=== PATIENT | female | born 1955 | race Caucasian/White ===

== ENCOUNTER 2019-08-16 20:15 | Inpatient (IN) ==
[2019-08-17] MEDS ORDERED: *HR* Dextrose 50 % in Water (Syg) 50 ML SYRINGE IVP PRN (01:28)
[2019-08-17] MEDS ORDERED: Dextrose Gel 15 GM/37.5 ML TUBE PO PRN ×2 (01:28)
[2019-08-17] MEDS ORDERED: D5% in Water 1,000 ML IVC PRN (01:28)
[2019-08-17] MEDS ORDERED: Prochlorperazine 10 MG/2 ML VIAL IVP PRN (01:33)
[2019-08-17] MEDS ORDERED: Ibuprofen 400 MG TABLET PO PRN (01:35)
[2019-08-17] MEDS ORDERED: Naloxone 0.4 MG/ML INJ IVP PRN (01:35)
[2019-08-17] MEDS: *HR* OxyCODONE Immed Rel 5 MG TABLET PO PRN ×4 (02:08→20:41)
[2019-08-17] MEDS: 0.9 % Sodium Chloride 1,000 ML IVC SCH ×2 (02:11→19:15)
[2019-08-17 04:20] LABS: Hematocrit 30.9 % (35.3-44.9); Hemoglobin 9.7 g/dL (11.5-15.4); Mean Corpuscular HGB Conc 31.4 g/dL (31.6-35.5); Mean Corpuscular Hemoglobin 26.6 pg (28.0-33.3); Mean Corpuscular Volume 84.7 fL (83.0-100.0); Mean Platelet Volume 9.6 fL (9.4-12.4); Platelet Count 231 K/mcL (140-400); Red Blood Count 3.65 M/mcL (3.82-4.97); Red Cell Distribution Width 18.6 % (11.5-14.5); White Blood Count 5.9 K/mcL (4.3-11.1)
[2019-08-17 04:29] LABS: INR 1.1; Prothrombin Time 12.6 Seconds (9.4-12.1)
[2019-08-17 04:32] LABS: Activated Partial Thrombo Time 29.9 Seconds (26.0-36.0)
[2019-08-17 04:44] LABS: BUN/Creatinine Ratio 21 (6-26); Blood Urea Nitrogen 6 mg/dL (8-23); Calcium 9.3 mg/dL (8.6-10.3); Carbon Dioxide 24 mEq/L (23-29); Chloride 103 mEq/L (98-107); Chol/HDL Ratio 4.3 (0-4.9); Cholesterol 120 mg/dL (< 200); Glucose 99 mg/dL (70-105); HDL Cholesterol 28 mg/dL (40-59); LDL Cholesterol,Calculated 58 mg/dL (0-99); Magnesium 1.8 mg/dL (1.6-2.6); Osmolality,Calculated 284 (280-300); Phosphorous 3.2 mg/dL (2.7-4.5); Potassium 3.9 mEq/L (3.5-5.1); Sodium 138 mEq/L (136-145); Triglycerides 168 mg/dL (< 150); eGFR For African Americans > 60 (> 60); eGFR For Non-African Americans > 60 (> 60)
[2019-08-17 04:45] LABS: Estimated Average Glucose 128 mg/dl
[2019-08-17 05:02] LABS: Alanine Aminotransferase 52 Units/L (7-52); Albumin 3.2 g/dL (3.5-5.7); Albumin/Globulin Ratio 0.9 (1.1-2.2); Alkaline Phosphatase 459 Units/L (34-104); Aspartate Amino Transferase 70 Units/L (13-39); Bilirubin,Direct 0.1 mg/dL (0.0-0.2); Bilirubin,Indirect 0.3 mg/dL (0.0-1.0); Bilirubin,Total 0.4 mg/dL (0.3-1.0); Globulin 3.6 g/dL (2.4-3.5); Iron < 10 mcg/dL (50-170); Thyroid Stimulating Hormone 2.025 mcIU/mL (0.340-5.600); Total Protein 6.8 g/dL (6.4-8.9); Transferrin 195 mg/dL (203-362)
[2019-08-17] MEDS: Insulin LISPRO 300 UNITS/3 ML VIAL SQ SCH ×6 (05:58→16:41)
[2019-08-17] MEDS ORDERED: NON-FORMULARY MEDICATION 1 EACH EACH (Oxycodone Immed Rel 10 MG) PO PRN (13:56)
[2019-08-17] MEDS ORDERED: Lactulose Oral Soln 20 GM/30 ML UDC PO PRN (13:56)
[2019-08-17] MEDS ORDERED: Ondansetron ODT 4 MG TAB.RAPDIS PO PRN (13:56)
[2019-08-17] MEDS: hydrOXYzine pamoate 25 MG CAPSULE PO SCH ×2 (16:35→21:07)
[2019-08-17] MEDS ORDERED: *HR* Metoprolol 5 MG/5 ML VIAL IVP PRN (16:43)
[2019-08-17] MEDS ORDERED: *HR* Metformin 500 MG TABLET PO SCH (17:00)
[2019-08-17] MEDS ORDERED: Insulin LISPRO 300 UNITS/3 ML VIAL SQ SCH (21:00)
[2019-08-17] MEDS ORDERED: Latanoprost 2.5 ML BOTTLE BOTH EYES SCH (21:00)
[2019-08-18] MEDS: Insulin LISPRO 300 UNITS/3 ML VIAL SQ SCH ×5 (00:27→12:05)
[2019-08-18] MEDS: 0.9 % Sodium Chloride 1,000 ML IVC SCH (01:17)
[2019-08-18] MEDS: *HR* OxyCODONE Immed Rel 5 MG TABLET PO PRN ×3 (03:54→14:59)
[2019-08-18 04:49] LABS: Hematocrit 30.8 % (35.3-44.9); Hemoglobin 9.4 g/dL (11.5-15.4); Mean Corpuscular HGB Conc 30.5 g/dL (31.6-35.5); Mean Corpuscular Hemoglobin 26.4 pg (28.0-33.3); Mean Corpuscular Volume 86.5 fL (83.0-100.0); Platelet Count 248 K/mcL (140-400); Red Blood Count 3.56 M/mcL (3.82-4.97); Red Cell Distribution Width 18.9 % (11.5-14.5); White Blood Count 5.9 K/mcL (4.3-11.1)
[2019-08-18 05:06] LABS: BUN/Creatinine Ratio 36 (6-26); Blood Urea Nitrogen 14 mg/dL (8-23); Calcium 9.1 mg/dL (8.6-10.3); Carbon Dioxide 28 mEq/L (23-29); Chloride 103 mEq/L (98-107); Glucose 144 mg/dL (70-105); Osmolality,Calculated 291 (280-300); Potassium 3.9 mEq/L (3.5-5.1); Sodium 139 mEq/L (136-145); eGFR For African Americans > 60 (> 60); eGFR For Non-African Americans > 60 (> 60)
[2019-08-18] MEDS ORDERED: Isovue-370 500 ML BOTTLE IVP ONE (06:01)
[2019-08-18] MEDS: hydrOXYzine pamoate 25 MG CAPSULE PO SCH ×3 (06:09→20:35)
[2019-08-18] MEDS ORDERED: Ascorbic Acid 500 MG TABLET PO SCH (06:30)
[2019-08-18] MEDS ORDERED: Famotidine 20 MG TABLET PO SCH (09:00)
[2019-08-18] MEDS ORDERED: Metoprolol XL (24 HR) Succ 50 MG TAB.ER.24H PO SCH (09:00)
[2019-08-18] MEDS ORDERED: Aspirin Enteric Coated 81 MG Tablet PO SCH (09:00)
[2019-08-18] MEDS ORDERED: Fluticasone Propionate Nasal 50 MCG/SPRAY BOTTLE NS SCH (09:00)
[2019-08-18] MEDS ORDERED: *HR* FentaNYL (PF) 100 MCG/2 ML VIAL ONE (12:34)
[2019-08-18] MEDS ORDERED: Dexamethasone 4 MG/ML VIAL ONE ×2 (12:34→12:43)
[2019-08-18] MEDS ORDERED: Lidocaine -MPF 2% 2 ML VIAL ONE ×2 (12:34→12:43)
[2019-08-18] MEDS ORDERED: Ondansetron 4 MG/2 ML VIAL ONE (12:34)
[2019-08-18] MEDS ORDERED: *HR* Propofol 200 MG/20 ML VIAL IVP ONE (12:35)
[2019-08-18] MEDS ORDERED: Acetaminophen IV 1,000 MG/100 ML INFUS..BTL ONE (13:22)
[2019-08-18] MEDS ORDERED: CeFAZolin Syr 2,000MG/20 ML 2,000 MG/20 ML SYRINGE IVPB ONE (13:25)
[2019-08-18] MEDS ORDERED: *HR* HYDROMORPHONE 2 MG/ML VIAL ONE (14:01)
[2019-08-18] MEDS ORDERED: Ringers Solution, Lactated 1,000 ML ONE (15:07)
[2019-08-18] MEDS ORDERED: *HR* HYDROmorphone (PF) 1 MG/ML SYRINGE IVP ONE (15:12)
[2019-08-18] MEDS: *HR* HYDROmorphone (PF) 1 MG/ML SYRINGE IVP PRN ×2 (15:55→16:11)
[2019-08-18] MEDS ORDERED: Ketorolac 30 MG/ML VIAL IVP ONE (16:21)
[2019-08-18] MEDS ORDERED: *HR* Labetalol 20 MG/4 ML SYRINGE IVP ONE (16:24)
[2019-08-18] MEDS: *HR* Labetalol 20 MG/4 ML SYRINGE IVP PRN ×2 (16:28→16:40)
[2019-08-18] MEDS ORDERED: *HR* Dextrose 50 % in Water (Syg) 50 ML SYRINGE IVP PRN (17:27)
[2019-08-18] MEDS ORDERED: Dextrose Gel 15 GM/37.5 ML TUBE PO PRN ×2 (17:27)
[2019-08-18] MEDS ORDERED: Ondansetron ODT 4 MG TAB.RAPDIS PO PRN (17:27)
[2019-08-18] MEDS ORDERED: Prochlorperazine 10 MG/2 ML VIAL IVP PRN (17:27)
[2019-08-18] MEDS ORDERED: D5% in Water 1,000 ML IVC PRN (17:27)
[2019-08-18] MEDS ORDERED: Lactulose Oral Soln 20 GM/30 ML UDC PO PRN (17:27)
[2019-08-18] MEDS ORDERED: Naloxone 0.4 MG/ML INJ IVP PRN (17:27)
[2019-08-18] MEDS ORDERED: Insulin LISPRO 300 UNITS/3 ML VIAL SQ SCH (18:00)
[2019-08-18 19:40] LABS: Hematocrit 29.7 % (35.3-44.9); Hemoglobin 9.2 g/dL (11.5-15.4)
[2019-08-18] MEDS: Latanoprost 2.5 ML BOTTLE BOTH EYES SCH (20:36)
[2019-08-18] MEDS: Levalbuterol Neb 1.25 MG/3 ML IH SCH (22:00)
[2019-08-19 01:53] LABS: Basophils % 0.2 %; Hemoglobin 9.6 g/dL (11.5-15.4); Immature Granulocytes % 0.6 % (0-4); Lymphocytes # 0.5 K/mcL (0.6-4.6); Lymphocytes % 7.5 %; Mean Corpuscular Hemoglobin 26.1 pg (28.0-33.3); Mean Corpuscular Volume 84.2 fL (83.0-100.0); Mean Platelet Volume 10.4 fL (9.4-12.4); Monocytes # 0.5 K/mcL (0.0-1.3); Monocytes % 7.5 %; Neutrophils # 5.5 K/mcL (1.6-8.9); Platelet Count 287 K/mcL (140-400); Red Blood Count 3.68 M/mcL (3.82-4.97); Segmented Neutrophils % 84.2 %; White Blood Count 6.6 K/mcL (4.3-11.1)
[2019-08-19 02:09] LABS: BUN/Creatinine Ratio 47 (6-26); Blood Urea Nitrogen 16 mg/dL (8-23); Calcium 9.3 mg/dL (8.6-10.3); Carbon Dioxide 25 mEq/L (23-29); Chloride 102 mEq/L (98-107); Glucose 130 mg/dL (70-105); Osmolality,Calculated 289 (280-300); Potassium 4.3 mEq/L (3.5-5.1); Sodium 138 mEq/L (136-145); eGFR For African Americans > 60 (> 60); eGFR For Non-African Americans > 60 (> 60)
[2019-08-19] MEDS: Levalbuterol Neb 1.25 MG/3 ML IH SCH ×4 (04:35→22:12)
[2019-08-19] MEDS: *HR* OxyCODONE Immed Rel 5 MG TABLET PO PRN ×4 (05:15→21:19)
[2019-08-19] MEDS: Ascorbic Acid 500 MG TABLET PO SCH (05:15)
[2019-08-19] MEDS: Fluticasone Propionate Nasal 50 MCG/SPRAY BOTTLE NS SCH (07:50)
[2019-08-19] MEDS: Metoprolol XL (24 HR) Succ 50 MG TAB.ER.24H PO SCH (07:51)
[2019-08-19] MEDS: Famotidine 20 MG TABLET PO SCH (07:51)
[2019-08-19] MEDS: hydrOXYzine pamoate 25 MG CAPSULE PO SCH ×3 (07:51→20:10)
[2019-08-19] MEDS: Aspirin Enteric Coated 81 MG Tablet PO SCH (07:51)
[2019-08-19] MEDS: Insulin LISPRO 300 UNITS/3 ML VIAL SQ SCH ×4 (07:56→21:21)
[2019-08-19] MEDS: *HR* Metoprolol 5 MG/5 ML VIAL IVP PRN (16:20)
[2019-08-19] MEDS: Latanoprost 2.5 ML BOTTLE BOTH EYES SCH (20:12)
[2019-08-20 01:25] LABS: Hematocrit 28.6 % (35.3-44.9); Mean Corpuscular HGB Conc 31.5 g/dL (31.6-35.5); Mean Corpuscular Hemoglobin 26.3 pg (28.0-33.3); Mean Corpuscular Volume 83.6 fL (83.0-100.0); Mean Platelet Volume 9.9 fL (9.4-12.4); Platelet Count 284 K/mcL (140-400); Red Blood Count 3.42 M/mcL (3.82-4.97); White Blood Count 5.7 K/mcL (4.3-11.1)
[2019-08-20 01:45] LABS: BUN/Creatinine Ratio 55 (6-26); Blood Urea Nitrogen 22 mg/dL (8-23); Calcium 8.8 mg/dL (8.6-10.3); Carbon Dioxide 26 mEq/L (23-29); Chloride 100 mEq/L (98-107); Glucose 149 mg/dL (70-105); Osmolality,Calculated 288 (280-300); Potassium 3.9 mEq/L (3.5-5.1); Sodium 136 mEq/L (136-145); eGFR For African Americans > 60 (> 60); eGFR For Non-African Americans > 60 (> 60)
[2019-08-20] MEDS: *HR* OxyCODONE Immed Rel 5 MG TABLET PO PRN (03:07)
[2019-08-20] MEDS: *HR* Metoprolol 5 MG/5 ML VIAL IVP PRN (03:07)
[2019-08-20] MEDS: Levalbuterol Neb 1.25 MG/3 ML IH SCH ×4 (03:59→21:58)
[2019-08-20] MEDS: Ascorbic Acid 500 MG TABLET PO SCH (05:38)
[2019-08-20] MEDS: Famotidine 20 MG TABLET PO SCH (07:52)
[2019-08-20] MEDS: Metoprolol XL (24 HR) Succ 50 MG TAB.ER.24H PO SCH (07:52)
[2019-08-20] MEDS: hydrOXYzine pamoate 25 MG CAPSULE PO SCH ×3 (07:52→21:15)
[2019-08-20] MEDS: Aspirin Enteric Coated 81 MG Tablet PO SCH (07:53)
[2019-08-20] MEDS: Fluticasone Propionate Nasal 50 MCG/SPRAY BOTTLE NS SCH (07:58)
[2019-08-20] MEDS: Insulin LISPRO 300 UNITS/3 ML VIAL SQ SCH ×4 (07:58→20:54)
[2019-08-20] MEDS: Latanoprost 2.5 ML BOTTLE BOTH EYES SCH (21:16)
[2019-08-21] MEDS: *HR* OxyCODONE Immed Rel 5 MG TABLET PO PRN ×3 (02:25→15:07)
[2019-08-21] MEDS: Levalbuterol Neb 1.25 MG/3 ML IH SCH ×4 (04:15→21:42)
[2019-08-21 04:48] LABS: Hematocrit 26.2 % (35.3-44.9); Hemoglobin 8.1 g/dL (11.5-15.4); Mean Corpuscular HGB Conc 30.9 g/dL (31.6-35.5); Mean Corpuscular Hemoglobin 26.5 pg (28.0-33.3); Mean Corpuscular Volume 85.6 fL (83.0-100.0); Mean Platelet Volume 9.8 fL (9.4-12.4); Platelet Count 245 K/mcL (140-400); Red Blood Count 3.06 M/mcL (3.82-4.97); Red Cell Distribution Width 19.1 % (11.5-14.5); White Blood Count 6.2 K/mcL (4.3-11.1)
[2019-08-21 05:06] LABS: BUN/Creatinine Ratio 50 (6-26); Blood Urea Nitrogen 14 mg/dL (8-23); Carbon Dioxide 28 mEq/L (23-29); Chloride 101 mEq/L (98-107); Glucose 108 mg/dL (70-105); Osmolality,Calculated 283 (280-300); Potassium 3.9 mEq/L (3.5-5.1); Sodium 136 mEq/L (136-145); eGFR For African Americans > 60 (> 60); eGFR For Non-African Americans > 60 (> 60)
[2019-08-21] MEDS: Ascorbic Acid 500 MG TABLET PO SCH (05:37)
[2019-08-21] MEDS: Insulin LISPRO 300 UNITS/3 ML VIAL SQ SCH ×4 (08:41→22:10)
[2019-08-21] MEDS: Metoprolol XL (24 HR) Succ 25 MG TAB.ER.24H PO SCH (08:51)
[2019-08-21] MEDS: Aspirin Enteric Coated 81 MG Tablet PO SCH (08:52)
[2019-08-21] MEDS: Famotidine 20 MG TABLET PO SCH (08:52)
[2019-08-21] MEDS: Fluticasone Propionate Nasal 50 MCG/SPRAY BOTTLE NS SCH (08:52)
[2019-08-21] MEDS: hydrOXYzine pamoate 25 MG CAPSULE PO SCH ×3 (08:52→22:09)
[2019-08-21] MEDS ORDERED: Sennosides 8.6 MG TABLET PO PRN (10:08)
[2019-08-21] MEDS ORDERED: Metoprolol XL (24 HR) Succ 25 MG TAB.ER.24H PO ONE (11:03)
[2019-08-21] MEDS ORDERED: Sennosides 8.6 MG TABLET PO ONE (11:07)
[2019-08-21 12:51] LABS: Hematocrit 28.1 % (35.3-44.9)
[2019-08-21] MEDS: *HR* Metoprolol 5 MG/5 ML VIAL IVP PRN (19:00)
[2019-08-21] MEDS: Latanoprost 2.5 ML BOTTLE BOTH EYES SCH (22:10)
[2019-08-22 01:17] LABS: Hematocrit 28.1 % (35.3-44.9); Hemoglobin 8.5 g/dL (11.5-15.4); Immature Platelets 1.9 % (1.1-6.1); Mean Corpuscular HGB Conc 30.2 g/dL (31.6-35.5); Mean Corpuscular Hemoglobin 26.3 pg (28.0-33.3); Mean Platelet Volume 9.8 fL (9.4-12.4); Red Blood Count 3.23 M/mcL (3.82-4.97); Red Cell Distribution Width 19.2 % (11.5-14.5); White Blood Count 5.9 K/mcL (4.3-11.1)
[2019-08-22 01:40] LABS: BUN/Creatinine Ratio 56 (6-26); Blood Urea Nitrogen 14 mg/dL (8-23); Calcium 9.2 mg/dL (8.6-10.3); Carbon Dioxide 26 mEq/L (23-29); Chloride 101 mEq/L (98-107); Glucose 87 mg/dL (70-105); Osmolality,Calculated 280 (280-300); Potassium 3.8 mEq/L (3.5-5.1); Sodium 135 mEq/L (136-145); eGFR For African Americans > 60 (> 60); eGFR For Non-African Americans > 60 (> 60)
[2019-08-22] MEDS: Levalbuterol Neb 1.25 MG/3 ML IH SCH ×4 (03:22→22:40)
[2019-08-22] MEDS: Ascorbic Acid 500 MG TABLET PO SCH (05:35)
[2019-08-22] MEDS: hydrOXYzine pamoate 25 MG CAPSULE PO SCH ×3 (08:00→21:57)
[2019-08-22] MEDS: *HR* OxyCODONE Immed Rel 5 MG TABLET PO PRN ×3 (08:01→21:59)
[2019-08-22] MEDS: Metoprolol XL (24 HR) Succ 25 MG TAB.ER.24H PO SCH ×2 (08:01→15:16)
[2019-08-22] MEDS: Aspirin Enteric Coated 81 MG Tablet PO SCH (08:01)
[2019-08-22] MEDS: Famotidine 20 MG TABLET PO SCH (08:01)
[2019-08-22] MEDS: Fluticasone Propionate Nasal 50 MCG/SPRAY BOTTLE NS SCH (08:01)
[2019-08-22] MEDS: Insulin LISPRO 300 UNITS/3 ML VIAL SQ SCH ×4 (08:02→21:37)
[2019-08-22 08:51] LABS: Bilirubin,Urine Negative (Negative); Blood,Urine Negative (Negative); Clarity,Urine Cloudy (Clear); Color,Urine Dark Yellow (Yellow); Glucose,Urine (UA) Normal (Normal); Ketones,Urine 40 mg/dL (Negative); Leukocyte Esterase,Urine Small (Negative); Nitrite,Urine Negative (Negative); Protein,Urine Negative (Neg-Trace); Specific Gravity,Urine 1.027 (1.010-1.025); Urobilinogen,Urine Normal (Normal)
[2019-08-22 08:53] LABS: Bacteria,Urine None Seen per hpf (None-Few); Hyaline Casts,Urine None Seen per lpf (None-Few); RBC,Urine 0-3 per hpf (0-3); Squamous Epithelial Cell,Urine Many per lpf (None-Few)
[2019-08-22] MEDS: *HR* Metoprolol 5 MG/5 ML VIAL IVP PRN (11:22)
[2019-08-22] MEDS: Latanoprost 2.5 ML BOTTLE BOTH EYES SCH (21:58)
[2019-08-23 01:24] LABS: Hematocrit 26.8 % (35.3-44.9); Hemoglobin 8.5 g/dL (11.5-15.4); Mean Corpuscular HGB Conc 31.7 g/dL (31.6-35.5); Mean Corpuscular Hemoglobin 26.1 pg (28.0-33.3); Mean Corpuscular Volume 82.2 fL (83.0-100.0); Mean Platelet Volume 9.4 fL (9.4-12.4); Platelet Count 289 K/mcL (140-400); Red Blood Count 3.26 M/mcL (3.82-4.97); Red Cell Distribution Width 19.2 % (11.5-14.5)
[2019-08-23] MEDS: Levalbuterol Neb 1.25 MG/3 ML IH SCH ×4 (03:34→22:11)
[2019-08-23] MEDS: Ascorbic Acid 500 MG TABLET PO SCH (05:27)
[2019-08-23] MEDS: *HR* Metoprolol 5 MG/5 ML VIAL IVP PRN (07:30)
[2019-08-23] MEDS: Insulin LISPRO 300 UNITS/3 ML VIAL SQ SCH ×4 (08:01→21:16)
[2019-08-23] MEDS: hydrOXYzine pamoate 25 MG CAPSULE PO SCH ×3 (08:32→20:08)
[2019-08-23] MEDS: Metoprolol XL (24 HR) Succ 25 MG TAB.ER.24H PO SCH (08:32)
[2019-08-23] MEDS: *HR* OxyCODONE Immed Rel 5 MG TABLET PO PRN ×3 (08:33→21:17)
[2019-08-23] MEDS: Aspirin Enteric Coated 81 MG Tablet PO SCH (08:33)
[2019-08-23] MEDS: Famotidine 20 MG TABLET PO SCH (08:33)
[2019-08-23] MEDS: Fluticasone Propionate Nasal 50 MCG/SPRAY BOTTLE NS SCH (11:51)
[2019-08-23] MEDS: Latanoprost 2.5 ML BOTTLE BOTH EYES SCH (20:08)
[2019-08-24] MEDS: Levalbuterol Neb 1.25 MG/3 ML IH SCH ×4 (03:38→22:16)
[2019-08-24 04:55] LABS: Hematocrit 28.9 % (35.3-44.9); Hemoglobin 8.7 g/dL (11.5-15.4); Mean Corpuscular HGB Conc 30.1 g/dL (31.6-35.5); Mean Corpuscular Hemoglobin 25.7 pg (28.0-33.3); Mean Corpuscular Volume 85.5 fL (83.0-100.0); Mean Platelet Volume 9.5 fL (9.4-12.4); Platelet Count 305 K/mcL (140-400); Red Blood Count 3.38 M/mcL (3.82-4.97); Red Cell Distribution Width 19.1 % (11.5-14.5); White Blood Count 5.5 K/mcL (4.3-11.1)
[2019-08-24 05:03] LABS: BUN/Creatinine Ratio 43 (6-26); Blood Urea Nitrogen 13 mg/dL (8-23); Calcium 9.3 mg/dL (8.6-10.3); Carbon Dioxide 25 mEq/L (23-29); Chloride 98 mEq/L (98-107); Glucose 92 mg/dL (70-105); Osmolality,Calculated 280 (280-300); Potassium 4.2 mEq/L (3.5-5.1); Sodium 135 mEq/L (136-145); eGFR For African Americans > 60 (> 60); eGFR For Non-African Americans > 60 (> 60)
[2019-08-24] MEDS: Ascorbic Acid 500 MG TABLET PO SCH (05:56)
[2019-08-24] MEDS: *HR* OxyCODONE Immed Rel 5 MG TABLET PO PRN ×3 (05:56→15:56)
[2019-08-24] MEDS: Insulin LISPRO 300 UNITS/3 ML VIAL SQ SCH ×4 (07:53→21:29)
[2019-08-24] MEDS: hydrOXYzine pamoate 25 MG CAPSULE PO SCH ×3 (09:46→19:35)
[2019-08-24] MEDS: Famotidine 20 MG TABLET PO SCH (09:47)
[2019-08-24] MEDS: Metoprolol XL (24 HR) Succ 25 MG TAB.ER.24H PO SCH (09:47)
[2019-08-24] MEDS: Fluticasone Propionate Nasal 50 MCG/SPRAY BOTTLE NS SCH (09:47)
[2019-08-24] MEDS: Aspirin Enteric Coated 81 MG Tablet PO SCH (09:47)
[2019-08-24] MEDS: Latanoprost 2.5 ML BOTTLE BOTH EYES SCH (19:36)
[2019-08-25] MEDS: *HR* OxyCODONE Immed Rel 5 MG TABLET PO PRN ×2 (01:28→09:34)
[2019-08-25] MEDS: Levalbuterol Neb 1.25 MG/3 ML IH SCH ×2 (04:04→11:06)
[2019-08-25] MEDS: Ascorbic Acid 500 MG TABLET PO SCH (05:28)
[2019-08-25 06:43] LABS: Hematocrit 31.3 % (35.3-44.9); Hemoglobin 9.9 g/dL (11.5-15.4); Mean Corpuscular HGB Conc 31.6 g/dL (31.6-35.5); Mean Corpuscular Hemoglobin 26.5 pg (28.0-33.3); Mean Corpuscular Volume 83.7 fL (83.0-100.0); Mean Platelet Volume 9.7 fL (9.4-12.4); Platelet Count 347 K/mcL (140-400); Red Blood Count 3.74 M/mcL (3.82-4.97); Red Cell Distribution Width 19.5 % (11.5-14.5); White Blood Count 5.8 K/mcL (4.3-11.1)
[2019-08-25 07:02] LABS: BUN/Creatinine Ratio 42 (6-26); Blood Urea Nitrogen 13 mg/dL (8-23); Calcium 9.4 mg/dL (8.6-10.3); Carbon Dioxide 27 mEq/L (23-29); Chloride 96 mEq/L (98-107); Glucose 101 mg/dL (70-105); Osmolality,Calculated 280 (280-300); Potassium 4.1 mEq/L (3.5-5.1); Sodium 135 mEq/L (136-145); eGFR For African Americans > 60 (> 60); eGFR For Non-African Americans > 60 (> 60)
[2019-08-25] MEDS: Metoprolol XL (24 HR) Succ 25 MG TAB.ER.24H PO SCH (07:53)
[2019-08-25] MEDS: Aspirin Enteric Coated 81 MG Tablet PO SCH (07:53)
[2019-08-25] MEDS: Famotidine 20 MG TABLET PO SCH (07:54)
[2019-08-25] MEDS: hydrOXYzine pamoate 25 MG CAPSULE PO SCH (07:54)
[2019-08-25] MEDS: Insulin LISPRO 300 UNITS/3 ML VIAL SQ SCH ×2 (08:02→12:04)
[2019-08-25] MEDS: Fluticasone Propionate Nasal 50 MCG/SPRAY BOTTLE NS SCH (08:48)
[2019-08-25 12:01] VITALS: BP 108/74
== END 2019-08-25 13:07 | DRG 308 ==
LOC: 3NENU → SUATTDRO 08-17 01:35
PROVIDERS: ADMIT Internal Medicine; ATTEND Internal Medicine